=== PATIENT | male | born 1990 | race Caucasian/White ===

== ENCOUNTER 2017-05-16 15:20 | Emergency (ER) | payer OTHER ==
[2017-05-16 16:24] LABS: HEMOGLOBIN 17.4 gm/dl (14.0-17.5); RED BLOOD COUNT 5.67 M/UL (4.20-5.50); WHITE BLOOD COUNT 5.4 K/UL (4.5-11.0)
[2017-05-16 16:37] LABS: BUN/CREATININE RATIO 33 (0-10)
== END 2017-05-16 19:36 | disposition home or self-care (01) ==
LOC: ER1 15:20
PROVIDERS: Emergency Medicine
DX: M54.2 Cervicalgia (principal); R07.9 Chest pain, unspecified; M54.6 Pain in thoracic spine; M54.5 Low back pain; M79.621 Pain in right upper arm; R10.32 Left lower quadrant pain; Z88.0 Allergy status to penicillin; V49.49XA Driver injured in collision with other motor vehicles in traffic accident, initial encounter; Y92.410 Unspecified street and highway as the place of occurrence of the external cause
CPT/HCPCS: 36415; 70450; 71250; 72125; 72128; 72131; 73060; 80053; 81001; 83690; 85025; 85610; 85730; 93005; 96374; 99285